=== PATIENT | female | born 1985 | race African-American/Black ===

== ENCOUNTER 2022-01-30 18:14 | Emergency (ER) | payer OTHER ==
[~2022-01-30] VITALS: Ht 167.6 cm; Wt 45.4 kg
[2022-01-30] MEDS ORDERED: DEXTROSE 50% SYRINGE 50 ML IV STA ×2 (18:22→21:08)
[2022-01-30 18:30] LABS: BASOPHILS # (AUTO) 0.1 (0.0-0.1); BASOPHILS % 1.1 % (0.0-1.0); EOSINOPHILS # (AUTO) 0.2 (0.0-0.4); EOSINOPHILS % 3.3 % (0.0-6.0); HEMATOCRIT 35.6 % (34.2-44.1); HEMOGLOBIN 10.4 g/dL (12.0-16.0); LYMPHOCYTES # (AUTO) 1.5 (1.0-3.2); LYMPHOCYTES % 20.8 % (18.0-39.1); MEAN CORPUSCULAR HEMOGLOBIN 29.7 pg (28-32); MEAN CORPUSCULAR HGB CONC 29.2 g/dL (31-35); MEAN CORPUSCULAR VOLUME 101.7 fL (81-99); MONOCYTES # (AUTO) 0.7 (0.2-0.8); MONOCYTES % 9.6 % (4.4-11.3); NEUTROPHILS # (AUTO) 4.7 (2.1-6.9); NEUTROPHILS % 64.8 % (38.7-80.0); PLATELET COUNT 308 x10e3/uL (140-360); RED CELL DISTRIBUTION WIDTH 16.3 % (11.7-14.4)
[2022-01-30] MEDS ORDERED: DEXTROSE 10% 1,000 ML IV ONE (18:30)
[2022-01-30 18:47] LABS: ALBUMIN 2.3 g/dL (3.5-5.0); ALBUMIN/GLOBULIN RATIO 0.4 (0.8-2.0); ANION GAP 17.5 mmol/L (8-16); CALCIUM 7.1 mg/dL (8.4-10.2); CREATININE, SERUM 3.68 mg/dL (0.57-1.11); POTASSIUM 3.5 mmol/L (3.5-5.1)
[2022-01-30 22:55] VITALS: BP 152/100
== END 2022-01-30 22:45 | disposition home or self-care (01) ==
LOC: ER 18:23
DX: E11.649 Type 2 diabetes mellitus with hypoglycemia without coma (principal); Z99.2 Dependence on renal dialysis; E11.40 Type 2 diabetes mellitus with diabetic neuropathy, unspecified; Z86.73 Personal history of transient ischemic attack (TIA), and cerebral infarction without residual deficits
CPT/HCPCS: 36415; 80053; 82948; 85025; 99284; J7799